=== PATIENT | male | born 1955 | race Caucasian/White ===

== ENCOUNTER 2020-10-16 08:45 | Day surgery (SDC) | payer MEDICARE ==
[~2020-10-16] VITALS: Ht 177.8 cm; Wt 79.5 kg
[~2020-10-16 08:45] MED LIST: AMLO-150 PO; ASPI-963 PO; ATOR40TA78 PO
[2020-10-16 10:22] VITALS: BP 125/60
[2020-10-16] MEDS ORDERED: METO25TA2 PO (10:29)
[2020-10-16] MEDS ORDERED: PROPOFOL 10 MG/ML, 20ML ONE (11:05)
== END 2020-10-16 12:56 | disposition home or self-care (01) ==
LOC: CACL 08:45
PROVIDERS: ATTEND Internal Medicine Cardiovascular Disease
DX: I08.3 Combined rheumatic disorders of mitral, aortic and tricuspid valves (principal); I63.9 Cerebral infarction, unspecified; I10 Essential (primary) hypertension; E78.5 Hyperlipidemia, unspecified; J44.9 Chronic obstructive pulmonary disease, unspecified; E66.3 Overweight; F17.210 Nicotine dependence, cigarettes, uncomplicated; Z20.822 Contact with and (suspected) exposure to COVID-19; Z68.24 Body mass index [BMI] 24.0-24.9, adult; Z79.82 Long term (current) use of aspirin; Z79.899 Other long term (current) drug therapy
CPT/HCPCS: 87635; 93312; 93321; 93325; J2704

== ENCOUNTER 2020-11-16 08:10 | Outpatient (CLI) | payer MEDICARE ==
[~2020-11-16 08:10] MED LIST changes: +METO25TA2 PO; +REGADENOSON 0.4 MG/5 ML SYRINGE ONE
== END 2020-11-16 23:59 | disposition home or self-care (01) ==
LOC: CFH 08:10
PROVIDERS: ATTEND Physician Assistant Medical
DX: I47.2 Ventricular tachycardia (principal); R06.00 Dyspnea, unspecified
CPT/HCPCS: 78452; 93017; A9502; J2785